=== PATIENT | male | born 1955 | race Caucasian/White ===

== ENCOUNTER → 2019-10-22 | Outpatient (REF) | payer BC | LOC: M LAB LCGH 09:50 | PROVIDERS: ATTEND Surgery | DX: Z12.11 Encounter for screening for malignant neoplasm of colon (principal); K63.5 Polyp of colon ==

== ENCOUNTER → 2020-06-06 | Outpatient (CLI) | payer BC | LOC: M LABSMTC 09:53 | PROVIDERS: ATTEND Orthopaedic Surgery | DX: Z20.828 Contact with and (suspected) exposure to other viral communicable diseases (principal) ==

== ENCOUNTER → 2020-06-11 | Outpatient (REF) | payer MEDICARE, BC | LOC: M LAB REF 17:10 | PROVIDERS: ATTEND Orthopaedic Surgery | DX: M65.861 Other synovitis and tenosynovitis, right lower leg (principal) ==